=== PATIENT | male | born 1970 | race Caucasian/White ===

== ENCOUNTER 2018-09-17 14:33 | Inpatient (IN) | payer MEDICARE ==
[2018-09-17 15:43] LABS: ADD MAN DIFF? NO
[2018-09-17 15:54] LABS: WHITE BLOOD COUNT 7.9 10^3/ul (4.8-10.8)
[2018-09-17 15:54] LABS: BASOPHIL # 0.1 10^3/ul (0.0-0.1); BASOPHILS % 0.8 % (0.0-2.0); EOSINOPHILS # 0.3 10^3/ul (0.0-0.5); EOSINOPHILS % 4.1 % (0.0-7.0); HEMATOCRIT 41.7 % (42.0-52.0); HEMOGLOBIN 12.8 g/dl (14.0-18.0); LYMPHOCYTES # 1.2 10^3/ul (0.8-2.9); LYMPHOCYTES % 15.5 % (15.0-51.0); MEAN CORPUSCULAR HEMOGLOBIN 24.7 pg (29.0-33.0); MEAN CORPUSCULAR HGB CONC 30.7 g/dl (32.0-37.0); MEAN CORPUSCULAR VOLUME 80.3 fl (82.0-101.0); MEAN PLATELET VOLUME 10.1 fl (7.4-10.4); MONOCYTE # 0.5 10^3/ul (0.3-0.9); MONOCYTES % 6.1 % (0.0-11.0); NEUTROPHIL # 5.7 10^3/ul (1.6-7.5); PLATELET COUNT 319 10^3/UL (140-415); RED BLOOD COUNT 5.19 10^6/ul (4.70-6.10); RED CELL DISTRIBUTION WIDTH 16.2 % (11.5-14.5)
[2018-09-17 16:02] LABS: ADD UMIC YES; UR ASCORBIC ACID 40 mg/dL (NEGATIVE); UR BACTERIA MODERATE /HPF (NONE SEEN); UR BILIRUBIN (Dip) NEGATIVE (NEGATIVE); UR BLOOD (Dip) 2+ mg/dL (NEGATIVE); UR CLARITY TURBID (CLEAR); UR COLOR AMBER (YELLOW); UR GLUCOSE (Dip) NEGATIVE (NEGATIVE); UR KETONES (Dip) TRACE mg/dL (NEGATIVE); UR LEUKOCYTE ESTERASE (Dip) 3+ Leu/ul (NEGATIVE); UR MUCUS MODERATE /HPF (NONE SEEN); UR NITRITE (Dip) NEGATIVE (NEGATIVE); UR RBC > 182 /HPF (0-5); UR SPECIFIC GRAVITY (Dip) 1.015 (1.003-1.030); UR SQUAMOUS EPITHELIAL CELL FEW /HPF (FEW); UR TOTAL PROTEIN (Dip) 3+ mg/dl (NEGATIVE); UR UROBILINOGEN (Dip) 1+ mg/dL (NEGATIVE); UR WBC > 182 /HPF (0-5)
[2018-09-17 16:13] LABS: ALANINE AMINOTRANSFERASE 32 IU/L (13-69); ALBUMIN/GLOBULIN RATIO 0.93; ALKALINE PHOSPHATASE 103 IU/L (42-121); ANION GAP 13 (5-13); ASPARTATE AMINO TRANSFERASE 40 IU/L (15-46); BILIRUBIN,INDIRECT 0.3 mg/dl (0-1.1); BILIRUBIN,TOTAL 0.3 mg/dl (0.2-1.3); BLOOD UREA NITROGEN 8 mg/dl (7-20); CALCIUM 9.2 mg/dl (8.4-10.2); CARBON DIOXIDE 30 mmol/L (21-31); CHLORIDE 96 mmol/L (97-110); CREATININE 0.58 mg/dl (0.61-1.24); Estimated GFR > 60 mL/min (>60); GLUCOSE 106 mg/dl (70-220); POTASSIUM 3.1 mmol/L (3.5-5.1); SODIUM 139 mmol/L (135-144); TOTAL PROTEIN 8.3 g/dl (6.1-8.1)
[2018-09-17 16:19] LABS: ETHANOL < 10.0 mg/dl (0-0)
[2018-09-17 16:26] LABS: AMPHETAMINE/METHAMPHETAMINE NEGATIVE (NEGATIVE); BARBITURATES NEGATIVE (NEGATIVE); BENZODIAZEPINES NEGATIVE (NEGATIVE); CANNABINOIDS NEGATIVE (NEGATIVE); COCAINE NEGATIVE (NEGATIVE); OPIATES NEGATIVE (NEGATIVE)
[2018-09-17 16:29] LABS: ACETAMINOPHEN < 10.0 ug/ml (10.0-30.0); SALICYLATE < 1.0 mg/dl (5.0-30.0)
[2018-09-17] MEDS: CEFTRIAXONE 1 GM/50 ML (PMX) 50 ML IVPB (18:45)
[2018-09-17] MEDS: CEFTRIAXONE 1 GM INJ IM (18:59)
[2018-09-17 20:04] LABS: TROPONIN-I < 0.012 ng/ml (0.000-0.120)
[2018-09-17] MEDS: POTASSIUM CHLORIDE 20 MEQ POWDER FOR ORAL SOLN PO (21:13)
[2018-09-17] MEDS ORDERED: ACETAMINOPHEN 325 MG TAB PO ×2 (21:30→22:30)
[2018-09-17] MEDS ORDERED: ONDANSETRON 4 MG INJ IV ×2 (21:30→22:30)
[2018-09-17] MEDS ORDERED: HALOPERIDOL 1 MG TAB PO (21:30)
[2018-09-17] MEDS ORDERED: DOCUSATE SODIUM 100 MG CAP PO (22:30)
[2018-09-17] MEDS ORDERED: BISACODYL (EC) 5 MG TAB PO (22:30)
[2018-09-17] MEDS ORDERED: NACL 0.9% 3 ML SYG IV (22:30)
[2018-09-17] MEDS ORDERED: HEPARIN 5,000 UNIT/0.5 ML VIAL (23:56)
[2018-09-18] MEDS: HEPARIN 5,000 UNIT/1 ML VIAL SC ×4 (00:11→21:59)
[2018-09-18] MEDS ORDERED: LORAZEPAM 2 MG INJ IV (04:30)
[2018-09-18 05:45] LABS: ADD MAN DIFF? NO
[2018-09-18] MEDS ORDERED: HEPARIN 5,000 UNIT/0.5 ML VIAL ×3 (05:45→21:50)
[2018-09-18 05:47] LABS: BASOPHIL # 0.1 10^3/ul (0.0-0.1); EOSINOPHILS # 0.2 10^3/ul (0.0-0.5); HEMATOCRIT 38.1 % (42.0-52.0); HEMOGLOBIN 11.7 g/dl (14.0-18.0); LYMPHOCYTES # 1.2 10^3/ul (0.8-2.9); LYMPHOCYTES % 18.1 % (15.0-51.0); MEAN CORPUSCULAR HEMOGLOBIN 24.6 pg (29.0-33.0); MEAN CORPUSCULAR HGB CONC 30.7 g/dl (32.0-37.0); MONOCYTE # 0.6 10^3/ul (0.3-0.9); MONOCYTES % 8.6 % (0.0-11.0); NEUTROPHIL # 4.6 10^3/ul (1.6-7.5); NEUTROPHILS % 68.7 % (39.0-77.0); PLATELET COUNT 318 10^3/UL (140-415); RED BLOOD COUNT 4.76 10^6/ul (4.70-6.10); RED CELL DISTRIBUTION WIDTH 16.6 % (11.5-14.5)
[2018-09-18 05:47] LABS: WHITE BLOOD COUNT 6.7 10^3/ul (4.8-10.8)
[2018-09-18 05:59] LABS: HEMOGLOBIN A1C 5.5 % (0-5.9)
[2018-09-18 06:24] LABS: ALANINE AMINOTRANSFERASE 32 IU/L (13-69); ALBUMIN 3.7 g/dl (3.3-4.9); ALKALINE PHOSPHATASE 94 IU/L (42-121); ANION GAP 11 (5-13); ASPARTATE AMINO TRANSFERASE 34 IU/L (15-46); BILIRUBIN,INDIRECT 0.4 mg/dl (0-1.1); BILIRUBIN,TOTAL 0.4 mg/dl (0.2-1.3); BLOOD UREA NITROGEN 7 mg/dl (7-20); CALCIUM 9.1 mg/dl (8.4-10.2); CARBON DIOXIDE 29 mmol/L (21-31); CHLORIDE 98 mmol/L (97-110); CHOL/HDL RATIO 6.3 RATIO; CHOLESTEROL 120 mg/dl (100-200); CREATININE 0.54 mg/dl (0.61-1.24); Estimated GFR > 60 mL/min (>60); GLUCOSE 101 mg/dl (70-220); HDL CHOLESTEROL 19 mg/dl (27-67); LDL CHOLESTEROL,CALCULATED 73 mg/dl; MAGNESIUM 2.1 mg/dl (1.7-2.5); POTASSIUM 3.3 mmol/L (3.5-5.1); SODIUM 138 mmol/L (135-144); TOTAL PROTEIN 7.4 g/dl (6.1-8.1); TRIGLYCERIDES 139 mg/dl (0-149)
[2018-09-18] MEDS: INFLUENZA VIRUS VACCINE 0.5 ML (DISPENSING) IM* (08:38)
[2018-09-18] MEDS ORDERED: HALOPERIDOL 1 MG TAB PO (09:00)
[2018-09-18] MEDS ORDERED: PENDING SANTYL ORDER FOR WOUND CARE XX (14:00)
[2018-09-18] MEDS ORDERED: CEFTRIAXONE 2 GM/50 ML (PMX) 50 ML IVPB (18:00)
[2018-09-18] MEDS: COLLAGENASE 5 GM (UD JAR) TOP (20:59)
[2018-09-19] MEDS: HEPARIN 5,000 UNIT/1 ML VIAL SC ×3 (06:00→21:52)
[2018-09-19] MEDS ORDERED: COLLAGENASE 5 GM (UD JAR) TOP (09:00)
[2018-09-19] MEDS ORDERED: HEPARIN 5,000 UNIT/0.5 ML VIAL ×2 (14:21→20:40)
[2018-09-19] MEDS: RISPERIDONE 2 MG TAB PO ×2 (14:28→20:54)
[2018-09-19] MEDS: COLLAGENASE 5 GM (UD JAR) TOP (20:54)
[2018-09-20] MEDS: HEPARIN 5,000 UNIT/1 ML VIAL SC ×2 (06:00→14:00)
[2018-09-20] MEDS: RISPERIDONE 2 MG TAB PO (09:00)
== END 2018-09-20 16:45 | disposition home or self-care (01) | DRG 880 ==
LOC: E/R 14:33 → 6WM 09-18 17:34
DX: F05 Delirium due to known physiological condition (principal); G82.20 Paraplegia, unspecified; Z68.44 Body mass index [BMI] 60.0-69.9, adult; N39.0 Urinary tract infection, site not specified; E66.01 Morbid (severe) obesity due to excess calories; N31.9 Neuromuscular dysfunction of bladder, unspecified
CPT/HCPCS: 80053; 80061; 80307; 81001; 83036; 83735; 84443; 84484; 85025; 87081; 87086; 90686; 93005; 93970; 96372; 99285-25